=== PATIENT | female | born 1990 | race Caucasian/White ===

== ENCOUNTER 2016-08-25 00:52 | Emergency (ER) | payer MEDICAID ==
--- NOTE | 2016-08-25 01:06 | EDM.PDOC ---
ED HPI GENERAL MEDICAL PROBLEM - General Chief Complaint: Chest Pain Stated Complaint: CHEST PAIN Time Seen by Provider: 08/25/16 01:06 - History of Present Illness INITIAL COMMENTS - FREE TEXT/NARRATIVE: 26-year-old female presents emergency room with substernal chest discomfort. This started about an hour before coming in. The patient was sitting on a couch watching TV. This pain is not associated with any nausea vomiting diaphoresis or radiating pain. Patient had a prior episode like this this last winter cause of this was not determined. Patient is currently treated for hypertension it was discovered with her last . Left Chest Pain Score (Numeric/FACES): 10 - Related Data Allergies Allergy/AdvReac Type Severity Reaction Status Date / Time No Known Allergies Allergy Verified 08/25/16 01:01 Home Meds: Home Meds Lansoprazole [Prevacid] 30 mg PO Q24H #30 tab. 08/25/16 [Rx] Sucralfate [Carafate] 1 gm PO QIDACANDBED #20 tablet 08/25/16 [Rx] amLODIPine [Norvasc] 5 mg PO DAILY 08/25/16 [History] ED ROS GENERAL - Review of Systems Review Of Systems: See Below Constitutional: Reports: No Symptoms HEENT: Reports: No Symptoms Respiratory: Reports: No Symptoms Cardiovascular: Reports: Chest Pain GI/Abdominal: Reports: No Symptoms : Reports: No Symptoms Neurological: Reports: No Symptoms ED EXAM, GENERAL - Physical Exam Exam: See Below Exam Limited By: No Limitations General Appearance: Alert, No Apparent Distress Neck: Normal Inspection. No: Carotid Bruit, Lymphadenopathy (L), Lymphadenopathy (R) Respiratory/Chest: No Respiratory Distress, Lungs Clear, Normal Breath Sounds Cardiovascular: Regular Rate, Rhythm, No Edema, Other (She is a faint early systolic murmur heard best the left upper sternal border) GI/Abdominal: Normal Bowel Sounds, Soft, Other (Vague upper abdominal mostly midepigastric discomfort) Extremities: Normal Inspection, No Pedal Edema Course - Vital Signs Last Recorded V/S: Last Vital Signs Temp 35.9 C 08/25/16 00:55 Pulse 88 08/25/16 00:55 Resp 18 08/25/16 00:55 BP 157/108 H 08/25/16 00:55 Pulse Ox 100 08/25/16 00:55 - Orders/Labs/Meds Orders: Active Orders 24 hr Category Date Time Status EKG Documentation Completion [RC] STAT Care 08/25/16 00:55 Active SEDIMENTATION RATE AUTO [HEME] Stat Lab 08/25/16 01:31 Received Sucralfate [Carafate] Med 08/25/16 07:00 Active 1 gm PO QIDACANDBED Medication Orders Sucralfate (Carafate) 1 gm PO QIDACANDBED YVETTE Labs: Laboratory Tests 08/25/16 08/25/16 Range/Units 01:31 01:31 WBC 13.69 H (3.98-10.04) K/mm3 RBC 5.09 (3.98-5.22) M/mm3 Hgb 12.1 (11.2-15.7) gm/L Hct 37.2 (34.1-44.9) % MCV 73.1 L (79.4-94.8) fl MCH 23.8 L (25.6-32.2) pg MCHC 32.5 (32.2-35.5) g/dl RDW Std Deviation 41.2 (36.4-46.3) fL Plt Count 282 (182-369) K/mm3 MPV 11.1 (9.4-12.3) fl Neutrophils % (Manual) 72 H (40-60) % Band Neutrophils % 0 (0-10) % Lymphocytes % (Manual) 17 L (20-40) % Atypical Lymphs % 1 % Monocytes % (Manual) 5 (2-10) % Eosinophils % (Manual) 2 (0.7-5.8) % Basophils % (Manual) 2 H (0.1-1.2) Metamyelocytes % 1 Platelet Estimate Adequate Plt Morphology Comment See note Polychromasia 1+ slight Hypochromasia 1+ slight Poikilocytosis 1+ slight Anisocytosis 1+ slight Microcytosis 1+ slight Macrocytosis 1+ slight Spherocytes Ovalocytes 1+ slight RBC Morph Comment Abnormal Sodium 141 (136-145) mEq/L Potassium 3.3 L (3.5-5.1) mEq/L Chloride 105 (98-107) mEq/L Carbon Dioxide 27 (21-32) mEq/L Anion Gap 12.3 (5-15) BUN 11 (7-18) mg/dL Creatinine 0.8 (0.55-1.02) mg/dL Est Cr Clr Drug Dosing 82.80 mL/min Estimated GFR (MDRD) > 60 (>60) mL/min BUN/Creatinine Ratio 13.8 L (14-18) Glucose 134 H (74-106) mg/dL Calcium 9.0 (8.5-10.1) mg/dL Total Bilirubin 0.3 (0.2-1.0) mg/dL AST 66 H (15-37) U/L ALT 47 (14-59) U/L Alkaline Phosphatase 113 (46-116) U/L Troponin I < 0.017 (0.00-0.056) ng/mL Total Protein 8.6 H (6.4-8.2) g/dl Albumin 3.8 (3.4-5.0) g/dl Globulin 4.8 gm/dL Albumin/Globulin Ratio 0.8 L (1-2) Meds: Medications Generic Name Dose Route Start Last Admin Trade Name Freq PRN Reason Stop Dose Admin Sucralfate 1 gm 08/25/16 07:00 Carafate PO QIDACANDBED YVETTE Discontinued Medications Generic Name Dose Route Start Last Admin Trade Name Freq PRN Reason Stop Dose Admin Al Hydroxide/Mg Hydroxide 30 0 ml 08/25/16 01:15 ml/ Lidocaine HCl 15 ml PO 08/25/16 01:16 ONETIME ONE Al Hydroxide/Mg Hydroxide 30 0 ml 08/25/16 01:15 08/25/16 01:20 ml/ Lidocaine HCl 15 ml PO 08/25/16 01:16 45 ml ONETIME ONE Administration - Re-Assessments/Exams Free Text/Narrative Re-Assessment/Exam: 08/25/16 02:41 Patient had good relief of her symptoms with the GI cocktail. This is followed up with a dose of Carafate. Labs reviewed nondiagnostic. Sedimentation rate still pending. 08/25/16 02:48 Sedimentation rate is verbally reported out of 28 with the upper and of normal at 22. Departure - Departure Time of Disposition: 02:42 Disposition: Home, Self-Care 01 Clinical Impression: Chest pain, Dyspepsia Prescriptions: Lansoprazole [Prevacid] 30 mg PO Q24H #30 tab.rap. Sucralfate [Carafate] 1 gm PO QIDACANDBED #20 tablet Forms: ED Department Discharge Additional Instructions: Return to the emergency room with any questions or problems. Followup with your physician this next week. Discussed if you need to have your heart murmur further evaluated. He been started on Carafate you will be on this for 5 days. Take this before breakfast lunch and supper and at bedtime. Take your other medications for at least an hour before or 2 hours after the Carafate. He been started on Prevacid take this once daily one hour before either your morning or evening meal. - My Orders Last 24 Hours: My Active Orders 08/25/16 00:55 EKG Documentation Completion [RC] STAT 08/25/16 01:31 SEDIMENTATION RATE AUTO [HEME] Stat 08/25/16 07:00 Sucralfate [Carafate] 1 gm PO QIDACANDBED - Assessment/Plan Last 24 Hours: My Active Orders 08/25/16 00:55 EKG Documentation Completion [RC] STAT 08/25/16 01:31 SEDIMENTATION RATE AUTO [HEME] Stat 08/25/16 07:00 Sucralfate [Carafate] 1 gm PO QIDACANDBED
[2016-08-25] MEDS ORDERED: Alum Hydrox/Mag Hydrox/Simeth 30 ML, Lidocaine 2% 15 ML PO ONE ×4 (01:15)
[2016-08-25] MEDS ORDERED: Sucralfate Suspension 1 GM/10 ML Cup PO ONE (02:54)
[2016-08-25 03:15] VITALS: BP 141/85
[2016-08-25] MEDS ORDERED: Sucralfate Suspension 1 GM/10 ML Cup PO SCH (07:00)
== END 2016-08-25 03:10 | disposition home or self-care (01) ==
LOC: JD.ED 00:52
DX: R07.2 Precordial pain (principal); R10.13 Epigastric pain; Z79.899 Other long term (current) drug therapy
CPT/HCPCS: 36415; 80053; 84484; 85025; 85652; 93005; 99285; A9270; 99283

== ENCOUNTER 2018-04-20 13:57 | Day surgery (SDC) | payer BC, MEDICAID ==
--- NOTE | 2018-04-20 14:09 | EDM.PDOC ---
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 DIRECTED Care 04/20/18 14:27 Active Abdomen Ltd [US] Stat Exams 04/20/18 14:26 Taken HCG QUALITATIVE,URINE [URCHEM] Stat Lab 04/20/18 16:57 Ordered UA W/MICROSCOPIC [URIN] Stat Lab 04/20/18 16:57 Ordered Lactated Ringers [Ringers, Lactated] 1,000 ml Med 04/20/18 16:58 Ordered IV .BOLUS Sodium Chloride 0.9% [Saline Flush] Med 04/20/18 14:26 Active 10 ml FLUSH ASDIRECTED PRN Peripheral IV Insertion Adult [OM.PC] Routine Oth 04/20/18 14:26 Ordered Medication Orders Lactated Ringer's (Ringers, Lactated) 1,000 mls @ 999 mls/hr IV .BOLUS ONE Stop: 04/20/18 17:58 Sodium Chloride (Saline Flush) 10 ml FLUSH ASDIRECTED PRN PRN Reason: Keep Vein Open Last Admin: 04/20/18 15:04 Dose: 10 ml Labs: Laboratory Tests 04/20/18 04/20/18 Range/Units 14:50 14:50 WBC 11.93 H (3.98-10.04) K/mm3 RBC 5.24 H (3.98-5.22) M/mm3 Hgb 11.1 L (11.2-15.7) gm/L Hct 35.2 (34.1-44.9) % MCV 67.2 L (79.4-94.8) fl MCH 21.2 L (25.6-32.2) pg MCHC 31.5 L (32.2-35.5) g/dl RDW Std Deviation 40.2 (36.4-46.3) fL Plt Count 320 (182-369) K/mm3 MPV 11.8 (9.4-12.3) fl Neutrophils % (Manual) 79 H (40-60) % Band Neutrophils % 0 (0-10) % Lymphocytes % (Manual) 15 L (20-40) % Atypical Lymphs % 2 % Monocytes % (Manual) 3 (2-10) % Eosinophils % (Manual) 1 (0.7-5.8) % Basophils % (Manual) 0 L (0.1-1.2) Platelet Estimate Adequate Hypochromasia Few Anisocytosis 1+ slight Microcytosis 1+ slight RBC Morph Comment Not Reportable Sodium 137 (136-145) mEq/L Potassium 3.4 L (3.5-5.1) mEq/L Chloride 99 (98-107) mEq/L Carbon Dioxide 26 (21-32) mEq/L Anion Gap 15.4 H (5-15) BUN 11 (7-18) mg/dL Creatinine 0.7 (0.55-1.02) mg/dL Est Cr Clr Drug Dosing 99.34 mL/min Estimated GFR (MDRD) > 60 (>60) mL/min BUN/Creatinine Ratio 15.7 (14-18) Glucose 141 H (74-106) mg/dL Calcium 9.5 (8.5-10.1) mg/dL Total Bilirubin 0.3 (0.2-1.0) mg/dL GGT 33 (5-55) U/L AST 19 (15-37) U/L ALT 28 (14-59) U/L Alkaline Phosphatase 118 H (46-116) U/L C-Reactive Protein 1.5 H* (<1.0) mg/dL Total Protein 8.8 H (6.4-8.2) g/dl Albumin 3.8 (3.4-5.0) g/dl Globulin 5.0 gm/dL Albumin/Globulin Ratio 0.8 L (1-2) Lipase 83 (73-393) U/L Meds: Medications Generic Name Dose Route Start Last Admin Trade Name Freq PRN Reason Stop Dose Admin Lactated Ringer's 1,000 mls @ 999 mls/hr 04/20/18 16:58 Ringers, Lactated IV 04/20/18 17:58 .BOLUS ONE Sodium Chloride 10 ml 04/20/18 14:26 04/20/18 15:04 Saline Flush FLUSH 10 ml ASDIRECTED PRN Administration Keep Vein Open Discontinued Medications Generic Name Dose Route Start Last Admin Trade Name Freq PRN Reason Stop Dose Admin Hydromorphone HCl 1 mg 04/20/18 14:26 04/20/18 15:02 Dilaudid IVPUSH 04/20/18 14:27 1 mg ONETIME ONE Administration Hydromorphone HCl 0.5 mg 04/20/18 16:58 Dilaudid IVPUSH 04/20/18 16:59 ONETIME ONE Metoclopramide HCl 7.5 mg 04/20/18 16:58 Reglan IVPUSH 04/20/18 16:59 ONETIME ONE Ondansetron HCl 4 mg 04/20/18 14:26 04/20/18 15:00 Zofran IVPUSH 04/20/18 14:27 4 mg ONETIME ONE Administration Departure - Departure Disposition: Refer to Observation Clinical Impression: Cholelithiasis - Discharge Information Referrals: Frederick Hernandez MD [Primary Care Provider] - Forms: ED Department Discharge Additional Instructions: Patient to be taken to the OR by Dr. Lopez for management of cholelithiasis. - My Orders Last 24 Hours: My Active Orders 04/20/18 14:26 Abdomen Ltd [US] Stat Sodium Chloride 0.9% [Saline Flush] 10 ml FLUSH ASDIRECTED PRN Peripheral IV Insertion Adult [OM.PC] Routine 04/20/18 14:27 Peripheral IV Care [RC] . DIRECTED 04/20/18 16:57 HCG QUALITATIVE,URINE [URCHEM] Stat UA W/MICROSCOPIC [URIN] Stat 04/20/18 16:58 Lactated Ringers [Ringers, Lactated] 1,000 ml IV .BOLUS - Assessment/Plan Last 24 Hours: My Active Orders 04/20/18 14:26 Abdomen Ltd [US] Stat Sodium Chloride 0.9% [Saline Flush] 10 ml FLUSH ASDIRECTED PRN Peripheral IV Insertion Adult [OM.PC] Routine 04/20/18 14:27 Peripheral IV Care [RC] . DIRECTED 04/20/18 16:57 HCG QUALITATIVE,URINE [URCHEM] Stat UA W/MICROSCOPIC [URIN] Stat 04/20/18 16:58 Lactated Ringers [Ringers, Lactated] 1,000 ml IV .BOLUS <Chitra Preston - Last Filed: 04/20/18 17:13> ED HPI GENERAL MEDICAL PROBLEM - General Source of Information: Reports: Patient History Limitations: Reports: No Limitations - History of Present Illness INITIAL COMMENTS - FREE TEXT/NARRATIVE: 28-year-old female presents for evaluation and treatment of abdominal pain. Patient reports she's had episodes similar to this before. review of the records show she was seen in August 2016 for chest pain. She states she was diagnosed with acid reflux. She reports since then she has been having episodes similar to this at least 1-2 times a week which last about an hour to two hours ans usually resolve on their own. She states that she's never had an episode this severe that has lingered this long or caused nausea or vomiting.. Patient is currently complaining of pain that started yesterday afternoon and evening. Pain is primarily in the right upper quadrant epigastric area radiates into her chest and through to her back. She reports associated symptoms of chills, diaphoresis, nausea and vomiting. She states she's had "some chest pain and shortness of breath ". She has never been evaluated for the pain other than her ER visit. Previous abdominal surgeries include a . LMP was about one month ago. Reports her menstrual cycle should start today. Last intake was yesterday evening. ED ROS GENERAL - Review of Systems Review Of Systems: See Below Constitutional: Reports: Chills, Decreased Appetite. Denies: Fever GI/Abdominal: Reports: Abdominal Pain (RUQ, epigastric), Decreased Appetite, Nausea, Vomiting : Reports: No Symptoms. Denies: Dysuria ED EXAM, GI/ABD - Physical Exam Exam: See Below Exam Limited By: No Limitations General Appearance: Alert, WD/WN, No Apparent Distress, Obese Respiratory/Chest: No Respiratory Distress, Lungs Clear, Normal Breath Sounds Cardiovascular: Normal Peripheral Pulses, Regular Rate, Rhythm, No Murmur GI/Abdominal Exam: Normal Bowel Sounds, Soft, Tender (RUQ, + bright's sign). No : Rebound Neurological: Alert, Oriented, Normal Cognition Psychiatric: Normal Affect, Normal Mood Skin Exam: Warm, Dry, Normal Color Course - Orders/Labs/Meds Labs: Laboratory Tests 04/20/18 04/20/18 Range/Units 14:50 14:50 WBC 11.93 H (3.98-10.04) K/mm3 RBC 5.24 H (3.98-5.22) M/mm3 Hgb 11.1 L (11.2-15.7) gm/L Hct 35.2 (34.1-44.9) % MCV 67.2 L (79.4-94.8) fl MCH 21.2 L (25.6-32.2) pg MCHC 31.5 L (32.2-35.5) g/dl RDW Std Deviation 40.2 (36.4-46.3) fL Plt Count 320 (182-369) K/mm3 MPV 11.8 (9.4-12.3) fl Neutrophils % (Manual) 79 H (40-60) % Band Neutrophils % 0 (0-10) % Lymphocytes % (Manual) 15 L (20-40) % Atypical Lymphs % 2 % Monocytes % (Manual) 3 (2-10) % Eosinophils % (Manual) 1 (0.7-5.8) % Basophils % (Manual) 0 L (0.1-1.2) Platelet Estimate Adequate Hypochromasia Few Anisocytosis 1+ slight Microcytosis 1+ slight RBC Morph Comment Not Reportable Sodium 137 (136-145) mEq/L Potassium 3.4 L (3.5-5.1) mEq/L Chloride 99 (98-107) mEq/L Carbon Dioxide 26 (21-32) mEq/L Anion Gap 15.4 H (5-15) BUN 11 (7-18) mg/dL Creatinine 0.7 (0.55-1.02) mg/dL Est Cr Clr Drug Dosing 99.34 mL/min Estimated GFR (MDRD) > 60 (>60) mL/min BUN/Creatinine Ratio 15.7 (14-18) Glucose 141 H (74-106) mg/dL Calcium 9.5 (8.5-10.1) mg/dL Total Bilirubin 0.3 (0.2-1.0) mg/dL GGT 33 (5-55) U/L AST 19 (15-37) U/L ALT 28 (14-59) U/L Alkaline Phosphatase 118 H (46-116) U/L C-Reactive Protein 1.5 H* (<1.0) mg/dL Total Protein 8.8 H (6.4-8.2) g/dl Albumin 3.8 (3.4-5.0) g/dl Globulin 5.0 gm/dL Albumin/Globulin Ratio 0.8 L (1-2) Lipase 83 (73-393) U/L - Radiology Interpretation Free Text/Narrative:: Abdominal ultrasound impression pre vrad: cholelithiasis - Re-Assessments/Exams Free Text/Narrative Re-Assessment/Exam: 04/20/18 16:40 Reviewed the labs and imaging with the patient. Discussed disposition. Appropriate to try at home management with low fat diet and pain medication as needed. Patient states she had pain relief with the IV dilaudid but it is returning. She would like her gallbladder out today. Discussed the case with Dr. Lopez, who has come to the ER and seen the patient. Plan will be to take her gallbladder out today. patient has been NPO since yesterday. Additional dilaudid 0.5mg IV ordered. REe Departure - Departure Time of Disposition: 17:12 Condition: Fair - Discharge Information *PRESCRIPTION DRUG MONITORING PROGRAM REVIEWED*: No *COPY OF PRESCRIPTION DRUG MONITORING REPORT IN PATIENT LUCRETIA: No
[2018-04-20] MEDS ORDERED: Ondansetron 4 MG/2 ML SDV IVPUSH ONE (14:26)
[2018-04-20] MEDS ORDERED: Sodium Chloride 0.9% 10 ML Syringe FLUSH PRN (14:26)
[2018-04-20] MEDS ORDERED: HYDROmorphone 1 MG/ML Syringe IVPUSH ONE ×2 (14:26→16:58)
[2018-04-20] MEDS ORDERED: Metoclopramide 10 MG/2 ML SDV IVPUSH ONE (16:58)
[2018-04-20] MEDS ORDERED: Lactated Ringers 1,000 ML IV ONE (16:58)
[2018-04-20] MEDS ORDERED: Propofol 200 MG/20 ML SDV ONE (17:20)
[2018-04-20] MEDS ORDERED: Midazolam 1 MG/ML 2 ML SDV ONE (17:20)
[2018-04-20] MEDS ORDERED: fentaNYL 250 MCG/5 ML SDV ONE ×2 (17:21→18:47)
[2018-04-20] MEDS ORDERED: Rocuronium 50 MG/5 ML Vial ONE (17:22)
[2018-04-20] MEDS ORDERED: Dexamethasone 4 MG/ML 5 ML MDV ONE (17:22)
[2018-04-20] MEDS ORDERED: Ondansetron 4 MG/2 ML SDV ONE (17:22)
[2018-04-20] MEDS ORDERED: Lidocaine 1% 4 ML ONE (17:22)
--- NOTE | 2018-04-20 17:22 | PCM.HP ---
H&P History of Present Illness - General Date of Service: 04/20/18 Admit Problem/Dx: Admission Diagnosis/Problem Admission Diagnosis/Problem Acute cholecystitis Source of Information: Patient, Provider History Limitations: Reports: No Limitations - History of Present Illness Initial Comments - Free Text/Narative: The patient is a 28 y/o lady who presents with epigastric and right upper quadrant pain. She reports having episodes of pain almost every other day that last for a few hours. She was found that pork and hamburgers seem to trigger her symptoms. She's been evaluated by other providers in the past and treated for gastritis. She is currently maintained on pantoprazole, but has been having continued symptoms. 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: - Past Surgical History HEENT Surgical History: Reports: Tonsillectomy Female Surgical History: Reports: Section Social & Family History - Family History Cardiac: Reports: [place] Other Cardiac Family History: mother from [place] at age of 43 - Tobacco Use Smoking Status *Q: Never Smoker - Caffeine Use Caffeine Use: Reports: Soda - Recreational Drug Use Recreational Drug Use: No H&P Review of Systems - Review of Systems: Review Of Systems: See Below General: Reports: No Symptoms HEENT: Reports: No Symptoms Pulmonary: Reports: No Symptoms Cardiovascular: Reports: No Symptoms Gastrointestinal: Reports: Abdominal Pain, Black Stool, Bloody Stool Genitourinary: Reports: No Symptoms Musculoskeletal: Reports: No Symptoms Skin: Reports: No Symptoms Neurological: Reports: No Symptoms Exam - Exam Exam: See Below - Vital Signs Vital Signs: Last Vital Signs Temp 36.2 C 04/20/18 14:08 Pulse 82 04/20/18 14:08 Resp 18 04/20/18 14:08 BP 154/90 H 04/20/18 14:08 Pulse Ox 100 04/20/18 14:08 Weight: 119.295 kg - Exam General: Alert, Oriented HEENT: Conjunctiva Clear, EOMI Neck: Supple Lungs: Normal Respiratory Effort GI/Abdominal Exam: Soft, No Distention, Tender (in epigastrium) Extremities: Normal Inspection Peripheral Pulses: 2+: Dorsalis Pedis (L), Dorsalis Pedis (R) Skin: Warm, Dry, Intact Neurological: Cranial Nerves Intact Neuro Extensive - Mental Status: Alert, Oriented x3, Normal Mood/Affect - Patient Data Lab Results Last 24 hrs: Laboratory Results - last 24 hr 04/20/18 04/20/18 04/20/18 Range/Units 14:50 14:50 16:55 WBC 11.93 H (3.98-10.04) K/mm3 RBC 5.24 H (3.98-5.22) M/mm3 Hgb 11.1 L (11.2-15.7) gm/L Hct 35.2 (34.1-44.9) % MCV 67.2 L (79.4-94.8) fl MCH 21.2 L (25.6-32.2) pg MCHC 31.5 L (32.2-35.5) g/dl RDW Std Deviation 40.2 (36.4-46.3) fL Plt Count 320 (182-369) K/mm3 MPV 11.8 (9.4-12.3) fl Neutrophils % (Manual) 79 H (40-60) % Band Neutrophils % 0 (0-10) % Lymphocytes % (Manual) 15 L (20-40) % Atypical Lymphs % 2 % Monocytes % (Manual) 3 (2-10) % Eosinophils % (Manual) 1 (0.7-5.8) % Basophils % (Manual) 0 L (0.1-1.2) Platelet Estimate Adequate Hypochromasia Few Anisocytosis 1+ slight Microcytosis 1+ slight RBC Morph Comment Not Reportable Sodium 137 (136-145) mEq/L Potassium 3.4 L (3.5-5.1) mEq/L Chloride 99 (98-107) mEq/L Carbon Dioxide 26 (21-32) mEq/L Anion Gap 15.4 H (5-15) BUN 11 (7-18) mg/dL Creatinine 0.7 (0.55-1.02) mg/dL Est Cr Clr Drug Dosing 99.34 mL/min Estimated GFR (MDRD) > 60 (>60) mL/min BUN/Creatinine Ratio 15.7 (14-18) Glucose 141 H (74-106) mg/dL Calcium 9.5 (8.5-10.1) mg/dL Total Bilirubin 0.3 (0.2-1.0) mg/dL GGT 33 (5-55) U/L AST 19 (15-37) U/L ALT 28 (14-59) U/L Alkaline Phosphatase 118 H (46-116) U/L C-Reactive Protein 1.5 H* (<1.0) mg/dL Total Protein 8.8 H (6.4-8.2) g/dl Albumin 3.8 (3.4-5.0) g/dl Globulin 5.0 gm/dL Albumin/Globulin Ratio 0.8 L (1-2) Lipase 83 (73-393) U/L Urine HCG, Qual Negative (NEGATIVE) Result Diagrams: 04/20/18 14:50 04/20/18 14:50 *Q Meaningful Use (ADM) - VTE Risk Assess *Q Each Risk Factor Represents 1 Point: Minor Surgery Planned, Obesity ( BMI > 25 kg/m2) Total Score 1 Point Risk Factors: 2 - Problem List (1) Acute cholecystitis SNOMED Code(s): 97553756 ICD Code: K81.0 - ACUTE CHOLECYSTITIS Status: Acute Current Visit: Yes Problem List Initiated/Reviewed/Updated: Yes Orders Last 24hrs: Active Orders 24 hr Category Date Time Status Patient Status [ADT] Routine ADT 04/20/18 17:13 Active Peripheral IV Care [RC] . DIRECTED Care 04/20/18 14:27 Active Abdomen Ltd [US] Stat Exams 04/20/18 14:26 Taken UA W/MICROSCOPIC [URIN] Stat Lab 04/20/18 16:55 Received Lactated Ringers [Ringers, Lactated] 1,000 ml Med 04/20/18 16:58 Active IV .BOLUS Sodium Chloride 0.9% [Saline Flush] Med 04/20/18 14:26 Active 10 ml FLUSH ASDIRECTED PRN Peripheral IV Insertion Adult [OM.PC] Routine Oth 04/20/18 14:26 Ordered Schedule Procedure [COMM] Stat Oth 04/20/18 17:11 Ordered Medication Orders Lactated Ringer's (Ringers, Lactated) 1,000 mls @ 999 mls/hr IV .BOLUS ONE Stop: 04/20/18 17:58 Last Admin: 04/20/18 17:03 Dose: 999 mls/hr Sodium Chloride (Saline Flush) 10 ml FLUSH ASDIRECTED PRN PRN Reason: Keep Vein Open Last Admin: 04/20/18 15:04 Dose: 10 ml Assessment/Plan Comment:: 28-year-old lady with acute cholecystitis - Plan for laparoscopic cholecystectomy, possible open. Discussed risks of bleeding, infection, bile duct injury. Her written consent was obtained - Nothing by mouth. Continue IV fluids - Will give antibiotics and OR per [facility] protocol - Admit for observation Denice High MD General Surgery
[2018-04-20] MEDS ORDERED: Lidocaine 1% with EPINEPHrine 1:100,000 20 ML MDV ONE (17:26)
[2018-04-20] MEDS ORDERED: Bupivacaine 0.5%/EPINEPHrine 1:200,000 50 ML MDV ONE (17:26)
--- NOTE | 2018-04-20 17:38 | PCM.PREANE ---
Preanesthetic Assessment - Procedure Proposed Procedure: Lap burt - Anesthesia/Transfusion/Family Hx Anesthesia History: Prior Anesthesia Without Reaction Family History of Anesthesia Reaction: No Transfusion History: No Prior Transfusion(s) - Review of Systems General: No Symptoms Pulmonary: No Symptoms Cardiovascular: Other (HTN, has been told she has a murmer ) Gastrointestinal: Abdominal Pain, Nausea, Vomiting (last couple days, last emesis 1330), Other (GERD) Neurological: No Symptoms Other: Reports: None - Physical Assessment NPO Status Date: 04/19/18 NPO Status Time: 22:30 O2 Sat by Pulse Oximetry: 100 Respiratory Rate: 18 Vital Signs: Last Vital Signs Temp 36.2 C 04/20/18 14:08 Pulse 82 04/20/18 14:08 Resp 18 04/20/18 14:08 BP 154/90 H 04/20/18 14:08 Pulse Ox 100 04/20/18 14:08 Height: 1.61 m Weight: 119.295 kg ASA Class: 2E Mental Status: Alert & Oriented x3 Airway Class: Mallampati = 2 Dentition: Reports: Bridge (upper left non removable bridge ), Missing Tooth/ Teeth (missing lower left toooth) Thyro-Mental Finger Breadths: 3 Mouth Opening Finger Breadths: 3 ROM/Head Extension: Full Lungs: Clear to Auscultation, Normal Respiratory Effort Cardiovascular: Regular Rate, Regular Rhythm, Murmurs (slight systolic murmer, pt has been told she has had this before ) - Lab Values: Laboratory Last Values WBC 11.93 K/mm3 (3.98-10.04) H 04/20/18 14:50 RBC 5.24 M/mm3 (3.98-5.22) H 04/20/18 14:50 Hgb 11.1 gm/L (11.2-15.7) L 04/20/18 14:50 Hct 35.2 % (34.1-44.9) 04/20/18 14:50 MCV 67.2 fl (79.4-94.8) L 04/20/18 14:50 MCH 21.2 pg (25.6-32.2) L 04/20/18 14:50 MCHC 31.5 g/dl (32.2-35.5) L 04/20/18 14:50 RDW Std Deviation 40.2 fL (36.4-46.3) 04/20/18 14:50 Plt Count 320 K/mm3 (182-369) 04/20/18 14:50 MPV 11.8 fl (9.4-12.3) 04/20/18 14:50 Neutrophils % (Manual) 79 % (40-60) H 04/20/18 14:50 Band Neutrophils % 0 % (0-10) 04/20/18 14:50 Lymphocytes % (Manual) 15 % (20-40) L 04/20/18 14:50 Atypical Lymphs % 2 % 04/20/18 14:50 Monocytes % (Manual) 3 % (2-10) 04/20/18 14:50 Eosinophils % (Manual) 1 % (0.7-5.8) 04/20/18 14:50 Basophils % (Manual) 0 (0.1-1.2) L 04/20/18 14:50 Platelet Estimate Adequate 04/20/18 14:50 Hypochromasia Few 04/20/18 14:50 Anisocytosis 1+ slight 04/20/18 14:50 Microcytosis 1+ slight 04/20/18 14:50 RBC Morph Comment Not Reportable 04/20/18 14:50 Sodium 137 mEq/L (136-145) 04/20/18 14:50 Potassium 3.4 mEq/L (3.5-5.1) L 04/20/18 14:50 Chloride 99 mEq/L (98-107) 04/20/18 14:50 Carbon Dioxide 26 mEq/L (21-32) 04/20/18 14:50 Anion Gap 15.4 (5-15) H 04/20/18 14:50 BUN 11 mg/dL (7-18) 04/20/18 14:50 Creatinine 0.7 mg/dL (0.55-1.02) 04/20/18 14:50 Est Cr Clr Drug Dosing 99.34 mL/min 04/20/18 14:50 Estimated GFR (MDRD) > 60 mL/min (>60) 04/20/18 14:50 BUN/Creatinine Ratio 15.7 (14-18) 04/20/18 14:50 Glucose 141 mg/dL (74-106) H 04/20/18 14:50 Calcium 9.5 mg/dL (8.5-10.1) 04/20/18 14:50 Total Bilirubin 0.3 mg/dL (0.2-1.0) 04/20/18 14:50 GGT 33 U/L (5-55) 04/20/18 14:50 AST 19 U/L (15-37) 04/20/18 14:50 ALT 28 U/L (14-59) 04/20/18 14:50 Alkaline Phosphatase 118 U/L (46-116) H 04/20/18 14:50 C-Reactive Protein 1.5 mg/dL (<1.0) H* 04/20/18 14:50 Total Protein 8.8 g/dl (6.4-8.2) H 04/20/18 14:50 Albumin 3.8 g/dl (3.4-5.0) 04/20/18 14:50 Globulin 5.0 gm/dL 04/20/18 14:50 Albumin/Globulin Ratio 0.8 (1-2) L 04/20/18 14:50 Lipase 83 U/L (73-393) 04/20/18 14:50 Urine Color Yellow (Yellow) 04/20/18 16:55 Urine Appearance Slt cloudy (Clear) H 04/20/18 16:55 Urine pH 6.0 (5.0-8.0) 04/20/18 16:55 Ur Specific [place] > or = 1.030 (1.005-1.030) 04/20/18 16:55 Urine Protein 1+ (Negative) H 04/20/18 16:55 Urine Glucose (UA) Negative (Negative) 04/20/18 16:55 Urine Ketones 1+ (Negative) H 04/20/18 16:55 Urine Occult Blood 3+ (Negative) H 04/20/18 16:55 Urine Nitrite Negative (Negative) 04/20/18 16:55 Urine Bilirubin Negative (Negative) 04/20/18 16:55 Urine Urobilinogen 0.2 (0.2-1.0) 04/20/18 16:55 Ur Leukocyte Esterase Negative (Negative) 04/20/18 16:55 Urine RBC 75-100 /hpf (0-5) H 04/20/18 16:55 Urine WBC 0-5 /hpf (0-5) 04/20/18 16:55 Ur Epithelial Cells 0-5 /hpf (0-5) 04/20/18 16:55 Urine Bacteria Few /hpf (FEW) 04/20/18 16:55 Urine Mucus Not seen /hpf (FEW) 04/20/18 16:55 Urine HCG, Qual Negative (NEGATIVE) 04/20/18 16:55 - Allergies Allergies/Adverse Reactions: Allergies Allergy/AdvReac Type Severity Reaction Status Date / Time No Known Allergies Allergy Verified 04/20/18 14:12 - Blood Blood Available: No Product(s) Available: None - Acknowledgements Anesthesia Type Planned: General Anesthesia Pt an Appropriate Candidate for the Planned Anesthesia: Yes Alternatives and Risks of Anesthesia Discussed w Pt/Guardian: Yes Pt/Guardian Understands and Agrees with Anesthesia Plan: Yes PreAnesthesia Questionnaire Cardiovascular History: Reports: Hypertension [employer] History: Reports: - Past Surgical History HEENT Surgical History: Reports: Tonsillectomy Female Surgical History: Reports: Section - SUBSTANCE USE Smoking Status *Q: Never Smoker Recreational Drug Use History: No - HOME MEDS Home Medications: Home Meds amLODIPine [Norvasc] 5 mg PO DAILY 08/25/16 [History] Pantoprazole Sodium [Protonix] 20 mg PO DAILY 04/20/18 [History] - CURRENT (IN HOUSE) MEDS Current Meds: Current Medications Lactated Ringer's (Ringers, Lactated) 1,000 mls @ 999 mls/hr IV .BOLUS ONE Stop: 04/20/18 17:58 Last Admin: 04/20/18 17:03 Dose: 999 mls/hr Sodium Chloride (Saline Flush) 10 ml FLUSH ASDIRECTED PRN PRN Reason: Keep Vein Open Last Admin: 04/20/18 15:04 Dose: 10 ml Discontinued Medications Bupivacaine HCl/Epinephrine Bitart (Marcaine 0.5%/Epinephrine 1:200,000) Confirm Administered Dose 50 ml .ROUTE .STK-MED ONE Stop: 04/20/18 17:27 Dexamethasone (Dexamethasone) Confirm Administered Dose 20 mg .ROUTE .STK-MED ONE Stop: 04/20/18 17:23 Fentanyl (Sublimaze) Confirm Administered Dose 250 mcg .ROUTE .STK-MED ONE Stop: 04/20/18 17:22 Hydromorphone HCl (Dilaudid) 1 mg IVPUSH ONETIME ONE Stop: 04/20/18 14:27 Last Admin: 04/20/18 15:02 Dose: 1 mg Hydromorphone HCl (Dilaudid) 0.5 mg IVPUSH ONETIME ONE Stop: 04/20/18 16:59 Last Admin: 04/20/18 17:06 Dose: 0.5 mg Lidocaine HCl (Xylocaine-Mpf 1%) Confirm Administered Dose 4 mls @ as directed .ROUTE .STK-MED ONE Stop: 04/20/18 17:23 Lidocaine/Epinephrine (Xylocaine 1% With Epinephrine 1:100,000) Confirm Administered Dose 40 ml .ROUTE .STK-MED ONE Stop: 04/20/18 17:27 Metoclopramide HCl (Reglan) 7.5 mg IVPUSH ONETIME ONE Stop: 04/20/18 16:59 Last Admin: 04/20/18 17:04 Dose: 7.5 mg Midazolam HCl (Versed 1 Mg/Ml) Confirm Administered Dose 2 mg .ROUTE .STK-MED ONE Stop: 04/20/18 17:21 Ondansetron HCl (Zofran) 4 mg IVPUSH ONETIME ONE Stop: 04/20/18 14:27 Last Admin: 04/20/18 15:00 Dose: 4 mg Ondansetron HCl (Zofran) Confirm Administered Dose 4 mg .ROUTE .STK-MED ONE Stop: 04/20/18 17:23 Propofol (Diprivan 20 Ml) Confirm Administered Dose 200 mg .ROUTE .STK-MED ONE Stop: 04/20/18 17:21 Rocuronium [place] (Zemuron) Confirm Administered Dose 50 mg .ROUTE .STK-MED ONE Stop: 04/20/18 17:23
[2018-04-20] MEDS ORDERED: HYDROmorphone 0.5 MG/0.5 ML Syringe ONE ×3 (18:13→18:48)
[2018-04-20] MEDS ORDERED: ceFAZolin 1 GM Vial ONE (18:18)
[2018-04-20] MEDS ORDERED: Labetalol 100 MG/20 ML MDV ONE (18:37)
[2018-04-20] MEDS ORDERED: Neostigmine Methylsulfate 1 MG/ML 5 ML Syringe ONE (19:07)
--- NOTE | 2018-04-20 19:31 | PCM.OPNOTE ---
- General Post-Op/Procedure Note Date of Surgery/Procedure: 04/20/18 Operative Procedure(s): Laparoscopic cholecystectomy Findings: acute cholecystitis, distended gallbladder Pre Op Diagnosis: acute cholecystitis Post-Op Diagnosis: same Anesthesia Technique: General ET Tube Primary Surgeon: Denice High Anesthesia Provider: Reece Monsalve Pathology: gallbladder Fluid Replacement, Intraop: 1,500 Output, Urine Amount: 0 EBL in mLs: 10 Complications: none apparent Condition: Good
[2018-04-20] MEDS ORDERED: Ketorolac 30 MG/ML SDV ONE (19:39)
--- NOTE | 2018-04-20 19:42 | PCM.PRNOTE ---
- Free Text/Narrative Note: OPERATIVE REPORT Date of Surgery/Procedure: April 20, 2018 Operative Procedure(s): laparoscopic cholecystectomy Findings: Acute cholecystitis, distended gallbladder Pre Op Diagnosis: . Acute cholecystitis Post-Op Diagnosis: Same Anesthesia Technique: General ET Tube Primary Surgeon: Denice High MD Anesthesia Provider: Reece Monsalve CRNA Pathology: Gallbladder with stones Fluid Replacement, Intraop: 1500cc Output, Urine Amount: 0cc EBL in mLs: 10 Drain/Tube Comments: None Indication for the procedure: The patient is a 28-year-old lady who presented with findings of acute cholecystitis. She had normal bilirubin levels and no evidence of choledocholithiasis. The patient was counseled for laparoscopic cholecystectomy, with possible conversion to open. After discussion of the risks of infection, bleeding and injury to the bile duct as well as increased complication from previous intra-abdominal surgery, the patient's consent was obtained. Description of the procedure: The patient presented to the outpatient holding area on the day of the procedure. The history and physical were verified and consent was present and on the chart. The patient was taken back to the operating room and placed in supine position on the operating table. SCD boots were placed and functional prior to the start of the procedure. Preoperative antibiotics were administered according to SCIP protocol, Ancef 2g IV. A surgical timeout was performed. The patient then had induction of general anesthesia and was intubated without difficulty. The patient was prepped and draped in standard surgical fashion. We began by making a 5 mm incision in the left upper quadrant. We entered the abdomen using a 5 mm trocar and 0 camera with the Visiport technique. We then attached insufflation and had appropriate opening pressures. The abdomen was then insufflated to 15 mmHg. There was no evidence of injury to surrounding structures with no evidence of bile or bleeding. A TAP block was then performed using 1% lidocaine with epinephrine mixed with 0.5% bupivicaine with epinephrine. We proceeded to place the remainder of our ports with a 5 mm port placed in the supraumbilical midline, he had 11 mm subxiphoid port and 25 mm ports in the right upper quadrant. The patient was then positioned with head up and right side up to facilitate exposure of the gallbladder. Once we had sufficiently exposed the dome of the gallbladder, this was grasped and retracted cephalad. The gallbladder was very tense and distended, and it was not able to be grasped appropriately. A laparoscopic needle was then inserted into the gallbladder and 50 mL of bilious fluid was aspirated from the gallbladder. The gallbladder was then grasped and retracted. We proceeded with our dissection to expose the cystic duct and cystic artery. We did have a critical view. The cystic duct and artery were then clipped and cut using endoscopic scissors. We then proceeded to fully dissect the gallbladder off of the cystic plate using the Bovie device. The gallbladder was in place in the Endo Catch bag and withdrawn through the subxiphoid port. We then inspected the area of the dissection. Any blood or bile was removed using a Ray-Afia in the abdomen, which is promptly withdrawn from the abdomen. There was no significant bleeding and hemostasis was achieved. The ports were then removed and the abdomen was desufflated. A superficial 4-0 monocryl suture was used to approximate the skin. The skin was covered with Dermabond surgical glue. The patient tolerated the procedure well and was extubated without difficulty. He was transported to the PACU in stable condition. All sponge, needle counts correct. I was scrubbed and actively participated in the entire procedure. No immediate complications noted. Complications: None apparent Condition: Good Denice High MD General Surgery
[2018-04-20] MEDS ORDERED: Ibuprofen 600 MG Tab PO PRN (19:44)
[2018-04-20] MEDS ORDERED: Acetaminophen/HYDROcodone 325-5 MG Tab PO PRN (19:44)
[2018-04-20] MEDS ORDERED: Ondansetron 4 MG Tab.DIS PO PRN (19:44)
[2018-04-20] MEDS ORDERED: fentaNYL 100 MCG/2 ML SDV IVPUSH PRN (19:48)
[2018-04-20] MEDS ORDERED: diphenhydrAMINE 50 MG/ML SDV IVPUSH PRN (19:48)
[2018-04-20] MEDS ORDERED: Ondansetron 4 MG/2 ML SDV IVPUSH PRN (19:48)
[2018-04-20] MEDS ORDERED: HYDROmorphone 0.5 MG/0.5 ML Syringe IVPUSH PRN (19:48)
[2018-04-20] MEDS ORDERED: Meperidine 50 MG/ML Vial IVPUSH ONE (19:48)
--- NOTE | 2018-04-20 19:50 | PCM.POSTAN ---
POST ANESTHESIA ASSESSMENT - MENTAL STATUS Mental Status: Somnolent - VITAL SIGNS Pulse Rate: 86 SaO2: 97 Resp Rate: 12 Blood Pressure: 150/75 Temperature: 36.7 C - RESPIRATORY Respiratory Status: Respiratory Rate WNL, Airway Patent, O2 Saturation Stable, Supplemental Oxygen - CARDIOVASCULAR CV Status: Pulse Rate WNL, Blood Pressure Stable - GASTROINTESTINAL GI Status: No Symptoms - PAIN Pain Score: 0 - POST OP HYDRATION Hydration Status: Adequate & Stable
[2018-04-21] MEDS: Docusate Sodium 100 MG Cap PO SCH ×2 (02:24→08:32)
[2018-04-21] MEDS ORDERED: Pantoprazole 40 MG Tab.CR PO SCH (06:00)
--- NOTE | 2018-04-21 08:01 | PCM48HPAN ---
Post Anesthesia Note - EVALUATION WITHIN 48HRS OF ANESTHETIC Vital Signs in Normal Range: Yes Patient Participated in Evaluation: Yes Respiratory Function Stable: Yes Airway Patent: Yes Cardiovascular Function Stable: Yes Hydration Status Stable: Yes Pain Control Satisfactory: Yes Nausea and Vomiting Control Satisfactory: Yes Mental Status Recovered: Yes - COMMENTS/OBSERVATIONS Free Text/Narrative:: Slight headache this morning. No anesthetic complications noted. Patient anticipates going home soon.
[2018-04-21 08:33] VITALS: BP 117/74
--- NOTE | 2018-04-21 08:46 | US ---
Limited abdominal ultrasound: Multiple real-time images of the upper right abdomen were obtained. Liver shows no focal abnormality. Gallbladder contains gallstones. No gallbladder wall thickening or biliary duct dilatation is seen. Visualized portions of the pancreas appear within normal limits. Inferior vena cava is patent. Portal vein shows normal hepatopedal flow. Right kidney shows no hydronephrosis or mass and has a length of 11.5 cm. Impression: 1. Gallstones with no gallbladder wall thickening or biliary duct dilatation. 2. No additional abnormality is identified on right upper quadrant abdominal ultrasound. Diagnostic code #3 Agree with preliminary report issued by [facility] ([facility] preliminary report dictated on 04/20/18, 4:58 PM Central Time)
[2018-04-21] MEDS ORDERED: Non-Formulary Medication 1 Each (Pantoprazole Sodium [Protonix] 20 MG) PO SCH (09:00)
[2018-04-21] MEDS ORDERED: amLODIPine 5 MG Tab PO SCH (09:00)
== END 2018-04-21 09:35 | disposition home or self-care (01) ==
LOC: JD.ED 13:57 → JD.SDS 17:13 → JD.MS 21:01 → JD.SDS 04-21 09:35
PROVIDERS: ATTEND Surgery
DX: K80.80 Other cholelithiasis without obstruction (principal); I10 Essential (primary) hypertension; K21.9 Gastro-esophageal reflux disease without esophagitis; Z79.899 Other long term (current) drug therapy
CPT/HCPCS: 36415; 47562; 76705; 80053; 81001; 81025; 82977; 83690; 85007; 85027; 86140; 96361; 96374; 96375; 96376; 99285; A9270; J0690; J1100; J1170; J1885; J2001; J2250; J2405; J2704; J2710; J2765; J3010; J3490; J7120; 00790; 99284

== ENCOUNTER 2018-07-21 20:21 | Emergency (ER) | payer BC ==
[2018-07-21 20:33] VITALS: BP 153/86
--- NOTE | 2018-07-21 20:56 | EDM.PDOC ---
ED HPI GENERAL MEDICAL PROBLEM - General Chief Complaint: General Stated Complaint: CONGESTION/SORE THROAT/EARS HURT Time Seen by Provider: 07/21/18 20:44 Source of Information: Reports: Patient, RN Notes Reviewed - History of Present Illness INITIAL COMMENTS - FREE TEXT/NARRATIVE: 28 old female had onset of nasal congestion cough sore throat about 10-12 days ago, was starting to get better and then started getting much worse about 4 days ago. Her boyfriend also did become ill about a week ago and he was diagnosed with influenza last week. For the past 3-4 days she has developed worsening cough, nasal and sinus congestion and continues to have sore throat. She has had headache, fever/chills body aches as well. She states she does have a lot of sinus drainage and is coughing and spitting out yellow colored phlegm. - Related Data Allergies Allergy/AdvReac Type Severity Reaction Status Date / Time No Known Allergies Allergy Verified 07/21/18 20:33 Home Meds: Home Meds amLODIPine [Norvasc] 5 mg PO DAILY 08/25/16 [History] Acetaminophen/HYDROcodone [[place] 325-5 MG] 1 tab PO Q6H PRN 14 Days #40 tablet 04/20/18 [Rx] Docusate Sodium [Colace] 100 mg PO BID 20 Days #40 cap 04/20/18 [Rx] Ibuprofen [Motrin] 600 mg PO Q6H PRN 20 Days #120 tablet 04/20/18 [Rx] Pantoprazole Sodium [Protonix] 20 mg PO DAILY 04/20/18 [History] Cephalexin [Keflex] 500 mg PO Q8HR #20 capsule 07/21/18 [Rx] Past Medical History Cardiovascular History: Reports: Hypertension [employer] History: Reports: - Past Surgical History HEENT Surgical History: Reports: Tonsillectomy Female Surgical History: Reports: Section Social & Family History - Family History Cardiac: Reports: [place] Other Cardiac Family History: mother from [place] at age of 43 - Tobacco Use Smoking Status *Q: Never Smoker - Caffeine Use Caffeine Use: Reports: None - Recreational Drug Use Recreational Drug Use: No ED ROS GENERAL - Review of Systems Review Of Systems: See Below Constitutional: Reports: Fever, Chills (Gone gone) HEENT: Reports: Rhinitis, Sinus Problem, Throat Pain Respiratory: Reports: Cough, Sputum. Denies: Wheezing, Pleuritic Chest Pain Cardiovascular: Reports: Chest Pain GI/Abdominal: Denies: Abdominal Pain (With coughing), Vomiting Musculoskeletal: Reports: Other Skin: Denies: Rash (Generalized achiness now better) Neurological: Reports: Headache ED EXAM, GENERAL - Physical Exam Exam: See Below General Appearance: Alert, Mild Distress Eye Exam: Bilateral Eye: PERRL Ears: Normal External Exam, Normal Canal, Other (There is some mild fluid posterior both TMs, noninflamed) Throat/Mouth: Normal Inspection, Normal Oropharynx Head: Other (He has mild tenderness to percussion over the maxillary sinuses). No: Facial Swelling Neck: Supple Respiratory/Chest: No Respiratory Distress, Lungs Clear, Normal Breath Sounds Cardiovascular: Regular Rate, Rhythm Extremities: Normal Inspection, Normal Range of Motion Neurological: Alert, Oriented, No Motor/Sensory Deficits Skin Exam: Warm, Dry, Normal Color Course - Vital Signs Last Recorded V/S: Last Vital Signs Temp 97.8 F 07/21/18 20:31 Pulse 84 07/21/18 20:31 Resp 18 07/21/18 20:31 BP 153/86 H 07/21/18 20:31 Pulse Ox 98 07/21/18 20:31 Departure - Departure Time of Disposition: 20:55 Disposition: Home, Self-Care 01 Condition: Fair Clinical Impression: Viral upper respiratory infection Sinusitis Qualifiers: Sinusitis location: unspecified location Chronicity: acute Recurrence: non- recurrent Qualified Code(s): J01.90 - Acute sinusitis, unspecified - Discharge Information Prescriptions: Cephalexin [Keflex] 500 mg PO Q8HR #20 capsule Instructions: Sinusitis, Adult, Upper Respiratory Infection, Adult, Easy-to- Read Referrals: Frederick Hernandez MD [Primary Care Provider] - Forms: ED Department Discharge Additional Instructions: Rest, vaporizer steam as needed, Tylenol or ibuprofen as needed for discomfort. Cephalexin antibiotic 500 mg 3 times daily for 1 week or until gone. Prescription has been sent to electronic to [facility]. Follow-up clinic if not much better within 3-5 days as expected.
== END 2018-07-21 21:15 | disposition home or self-care (01) ==
LOC: JD.ED 20:21
DX: J01.90 Acute sinusitis, unspecified (principal); J06.9 Acute upper respiratory infection, unspecified; I10 Essential (primary) hypertension; Z79.899 Other long term (current) drug therapy
CPT/HCPCS: 99283